=== PATIENT | male | born 1955 | race Caucasian/White ===

== ENCOUNTER 2023-11-26 06:45 | Emergency (ER) | payer MEDICARE, OTHER ==
[~2023-11-26] VITALS: Ht 188 cm; Wt 102.0 kg
[2023-11-26 06:48] VITALS: O2SAT 98
[2023-11-26 07:02] VITALS: TEMP 98.3
[2023-11-26 07:27] LABS: EOSINOPHILS % 2.1 % (0.0-5.0); HEMATOCRIT. 51.5 % (42.0-52.0); HEMOGLOBIN. 17.1 g/dL (14.0-18.0); MEAN CORPUSCULAR HEMOGLOBIN 29.9 pg (28.0-32.0); MEAN CORPUSCULAR HGB CONC 33.3 g/dL (31.0-37.0); MEAN CORPUSCULAR VOLUME 89.8 fL (80.0-94.0); MEAN PLATELET VOLUME 8.3 fl (7.4-10.4); NEUTROPHILS % 63.9 % (40.0-76.0); PLATELET 212 x1000/uL (130-400); RED BLOOD CELL COUNT 5.74 mill/uL (4.7-6.1); RED CELL DISTRIBUTION WIDTH 14.8 % (11.6-14.6); WHITE BLOOD COUNT 6.8 x1000/uL (4.5-11.0)
[2023-11-26 07:33] LABS: CHLORIDE 109 mEq/L (98-107); POTASSIUM 3.9 mEq/L (3.5-5.1); SODIUM 139 mEq/L (136-145)
[2023-11-26 07:34] LABS: CARBON DIOXIDE 20 mEq/L (21-32)
[2023-11-26 07:35] LABS: CALCIUM 9.2 mg/dL (8.7-10.4)
[2023-11-26 07:39] LABS: CREATININE 1.5 mg/dL (0.6-1.3); GLUCOSE 123 mg/dL (70-105); UREA NITROGEN BLOOD 23 mg/dL (9-23)
[2023-11-26 07:49] LABS: TROPONIN I HIGH SENSITIVITY < 4 ng/L (3.0-53)
[2023-11-26 09:29] LABS: TROPONIN I HIGH SENSITIVITY < 4 ng/L (3.0-53)
[2023-11-26 10:08] VITALS: BP 111/81; PULSE 71; RESP 16
== END 2023-11-26 10:36 | disposition home or self-care (01) ==
LOC: ER 06:45
DX: R07.89 Other chest pain (principal); I10 Essential (primary) hypertension; I48.91 Unspecified atrial fibrillation; Z98.890 Other specified postprocedural states
CPT/HCPCS: 36415; 71045; 80048; 83880; 84484; 85025; 93005; 99285